=== PATIENT | female | born 1970 | race Caucasian/White ===

== ENCOUNTER 2016-10-06 10:42 | Emergency (ER) | payer MEDICAID ==
[~2016-10-06] VITALS: Ht 160 cm; Wt 65.0 kg
[~2016-10-06 10:42] MED LIST: PRED20TA PO; RANI150T9 PO
[2016-10-06 10:52] VITALS: Ht 160 cm; Wt 65.0 kg
--- NOTE | 2016-10-06 13:21 | ERD ---
ER Documentation Chief Complaint Date/Time DATE: 10/06/16 TIME: 13:19 Chief Complaint HEADACHE,TAHIR EARACHE HPI 46-year-old female presents with 2 months of bilateral pain behind her ears, as well as associated headache. She points to the scalp just behind both her ears , she describes as achy, and started together 2 months ago and she has been taking ibuprofen for the pain. She reports that she has also had flulike symptoms 2 weeks ago where she had fever, cough as well. ROS All systems reviewed and are negative except as per history of present illness. Medications Home Meds Active Scripts Naproxen* (Naprosyn*) 500 Mg Tablet, 500 MG PO BID Y for PAIN AND/OR INFLAMMATION, #30 TAB Prov:LENA ELIZONDO PA-C 10/06/16 Amoxicillin/Potassium Clav (Amox-Clav 875-125 mg Tablet) 875-125 mg Tab, 1 TAB PO BID for 7 Days, #14 TAB Prov:LENA ELIZONDO PA-C 10/06/16 Ranitidine Hcl* (Zantac*) 150 Mg Tablet, 150 MG PO BID Y for ALLERGIC REACTION for 5 Days, TAB Prov:LENA ELIZONDO PA-C 11/26/14 Prednisone* (Prednisone*) 20 Mg Tab, 20 MG PO BID for 5 Days, TAB Prov:LENA ELIZONDO PA-C 11/26/14 Allergies Allergies: Coded Allergies: No Known Allergy (Verified Allergy, Unknown, 06/07/06) PMhx/Soc Medical and Surgical Hx: pt denies Medical Hx, pt denies Surgical Hx Hx Alcohol Use: No Hx Substance Use: No Hx Tobacco Use: No Smoking Status: Never smoker Physical Exam Vitals Vital Signs Date Time Temp Pulse Resp B/P Pulse Ox O2 Delivery O2 Flow Rate FiO2 10/06/16 10:52 98.1 67 18 107/58 98 Physical Exam General: Well-developed, well-nourished. The patient appears in no acute distress. HEENT: Head is normocephalic, atraumatic. No scleral icterus. Pupils are equal , round, and reactive. Oral mucous membranes are moist. No pharyngeal erythema. TMs are normal, mastoids are nontender. There is no drainage. Neck: Supple. Nontender. Lungs: Clear to auscultation. Normal air movement. Heart: Regular rate and rhythm. S1 and S2 are normal. No murmurs, gallops, or rubs. Abdomen: Soft, nontender, nondistended. Bowel sounds are normoactive. Extremities: No clubbing or cyanosis. Normal pulses. Moving extremities x 4. No weakness. Neurologic: Alert and oriented 3. No focal deficits. Skin: Normal turgor. No rash or lesions. Results 24 hrs PROCEDURE: Noncontrast CT Head. CLINICAL INDICATION: Bilateral ear pain. TECHNIQUE: Noncontrast CT of the head was obtained. The administered radiation dose was CTDI vol = 44.84 mGy, DLP = 630.2 mGy-cm. One or more of the following dose reduction techniques were used: Automated exposure control, Adjustment of the mA and/or kV according to patient size, or Use of iterative reconstruction technique. COMPARISON: There are no similar studies submitted for comparison. FINDINGS: The ventricles and sulci are within normal limits. There is a punctate calcification within the right frontal lobe suggesting prior infectious/inflammatory etiologies such as neurocysticercosis. There is no loss of louie-white differentiation to suggest acute territorial infarction. There is no acute intracranial hemorrhage or extra-axial fluid collection. There is no mass effect. No midline shift is identified. The orbits are within normal limits. There is minimal left sphenoid sinus mucosal thickening. No destructive osseous lesion is identified. The bilateral mastoid air cells are well-aerated. IMPRESSION: 1. No acute intracranial hemorrhage or extra-axial fluid collection. 2. Punctate calcification within the right frontal lobe suggesting prior infectious/inflammatory etiologies such as neurocysticercosis. 3. The bilateral mastoid air cells are well-aerated. Further findings as detailed above. RPTAT: PP .Tani Allen MD, MD Date Time Electronically viewed and signed by .Tani Allen MD, MD on 10/06/2016 14:11 Procedures/MDM 38-year-old female comes in with headache 2 months behind her ears, CT of head shows no evidence of an intracranial hemorrhage, mass-effect, midline shift or mastoiditis. There is small amount of sinus disease in the left ethmoid, without evidence of abscess, meningitis or encephalitis. She has been asked to recheck with her primary care physician later this week. Departure Diagnosis: Primary Impression: Headache Condition: Good LENA ELIZONDO PA-C Oct 06, 2016 13:21
--- NOTE | 2016-10-06 14:11 | RADRPT ---
PROCEDURE: Noncontrast CT Head. CLINICAL INDICATION: Bilateral ear pain. TECHNIQUE: Noncontrast CT of the head was obtained. The administered radiation dose was CTDI vol = 44.84 mGy, DLP = 630.2 mGy-cm. One or more of the following dose reduction techniques were used: Aut omated exposure control, Adjustment of the mA and/or kV according to patient size, or Use of iterati ve reconstruction technique. COMPARISON: There are no similar studies submitted for comparison. FINDINGS: The ventricles and sulci are within normal limits. There is a punctate calcification within the right frontal lobe suggesting prior infectious/inflamma tory etiologies such as neurocysticercosis. There is no loss of louie-white differentiation to suggest acute territorial infarction. There is no acute intracranial hemorrhage or extra-axial fluid collection. There is no mass effect. No midline shift is identified. The orbits are within normal limits. There is minimal left sphenoid sinus mucosal thickening. No destructive osseous lesion is identified. The bilateral mastoid air cells are well-aerated. IMPRESSION: 1. No acute intracranial hemorrhage or extra-axial fluid collection. 2. Punctate calcification within the right frontal lobe suggesting prior infectious/inflammatory fiordaliza ologies such as neurocysticercosis. 3. The bilateral mastoid air cells are well-aerated. Further findings as detailed above. RPTAT: PP .Tani Allen MD, MD Date Time Electronically viewed and signed by .Tani Allen MD, on 10/06/2016 14:11 .F/
[2016-10-06] MEDS ORDERED: AMOX1TAB10 PO (14:26)
[2016-10-06] MEDS ORDERED: NAPR-260 PO (14:26)
== END 2016-10-06 14:36 | disposition home or self-care (01) ==
LOC: FTE 10:42
DX: R51 Headache (principal)
CPT/HCPCS: 70450; Z7502